=== PATIENT | female | born 1975 | race Caucasian/White ===

== ENCOUNTER 2018-10-23 16:10 | Inpatient (IN) | payer OTHER ==
--- NOTE | 2018-10-23 16:13 | PDOC ---
History of Present Illness - History of Present Illness Initial Comments: 10/23/18 17:08 The patient is a 43 year old female with past medical history of hypothyroidism who presents to the emergency department today accompanied by her , sent by Dr. Ocampo for evaluation status post spinal procedure taken place on September 27, 2018. Patient reports increasing back pain since her operation. She explains that the pain radiates to her lower extremities and notes spasms in her right leg with associated weakness. Patient notes draining from her incision which she describes as yellow in color with streaks of blood. Patient describes pimple like bumps around incision which her noticed yesterday. Patient reports intermittent episodes of chills and fever, with highest being noted to be 99.8 degrees. Patient has been using walker to ambulate. Denies chest pain, shortness of breath, headache, nausea, vomiting, and bowel/ urinary issues. Allergies: no known drug allergies. Social: tobacco use reported. No reported alcohol or drug use. Surgical history: cholecystectomy (2013), tonsillectomy (1990), (2000 , 2004) Prize Coordinator : Dr. Leonardo Ocampo ([phone]) <Mesha Muro - Last Filed: 10/23/18 17:08> - General History Source: Patient Exam Limitations: No Limitations <Jose Pitts - Last Filed: 10/23/18 18:49> - General Chief Complaint: Wound Stated Complaint: INFECTION TO INCISION SITE Time Seen by Provider: 10/23/18 16:11 Past History <Mesha Muro - Last Filed: 10/23/18 17:08> <Jose Pitts - Last Filed: 10/23/18 18:49> - Past Medical History Allergies/Adverse Reactions: Allergies Allergy/AdvReac Type Severity Reaction Status Date / Time No Known Allergies Allergy Verified 10/23/18 16:11 Home Medications: Ambulatory Orders Citalopram Hydrobromide [Citalopram HBr] 20 mg PO HS 10/23/18 Clonazepam [Klonopin] 1.5 mg PO HS 10/23/18 Cyclobenzaprine HCl [Flexeril 10 mg] 10 mg PO [facility]IR PRN 10/23/18 Gabapentin 300 mg PO BID 10/23/18 Gabapentin 600 mg PO HS 10/23/18 Levothyroxine Sodium [Synthroid] 88 mcg PO DAILY 10/23/18 Mirtazapine 45 mg PO HS 10/23/18 Oxycodone HCl/Acetaminophen [Percocet 5-325 mg Tablet] 1 - 2 tab PO Q4H PRN Review of Systems - Review of Systems Constitutional: Yes: Chills, Fever Respiratory: No: Cough, Shortness of Breath Cardiac (ROS): No: Chest Pain ABD/GI: No: Diarrhea, Vomiting : No: Incontinence Musculoskeletal: Yes: Back Pain Integumentary: Yes: See HPI All Other Systems: Reviewed and Negative <Jose Pitts - Last Filed: 10/23/18 18:49> *Physical Exam - Vital Signs Last Vital Signs Temp Pulse Resp BP Pulse Ox 98.3 F 76 18 98/59 L 100 10/23/18 16:10 10/23/18 16:10 10/23/18 16:10 10/23/18 16:10 10/23/18 16:10 - Physical Exam Comments: 10/23/18 17:01 GENERAL: The patient is awake, alert, and fully oriented, in no acute distress. HEAD:Normal with no signs of trauma. EYES: Pupils equal, round and reactive to light, extraocular movements intact, sclera anicteric, conjunctiva clear. HEART: Regular rate and rhythm, normal S1 and S2 without murmur or rub. EXTREMITIES: Normal range of motion, no edema. NEUROLOGICAL: (+)Full range of motion limited by lower back and hip discomfort. Normal speech, normal gait. PSYCH: Normal mood, normal affect. SKIN: (+)Vertical midline incision in lower back. Sutures intact. Subtle surrounding blanching erythema. (+)Purulence along incision. No tracking induration or fluctuance. (+)Slight discomfort to palpation. No crepitus or foreign body. Warm, Dry, normal turgor, no rashes or lesions noted. <Mesha Muro - Last Filed: 10/23/18 17:08> Moderate Sedation - Procedure Monitoring Vital Signs: Procedure Monitoring Vital Signs Temperature 98.3 F 10/23/18 16:10 Pulse Rate 76 10/23/18 16:10 Respiratory Rate 18 10/23/18 16:10 Blood Pressure 98/59 L 10/23/18 16:10 O2 Sat by Pulse Oximetry (%) 100 10/23/18 16:10 <Mesha Muro - Last Filed: 10/23/18 17:08> ED Treatment Course - LABORATORY CBC & Chemistry Diagram: 10/23/18 16:45 10/23/18 16:45 <Jose Pitts - Last Filed: 10/23/18 18:49> Medical Decision Making - Medical Decision Making 10/23/18 16:42 Dr. Ocampo contacted via cell and is en route to see patient. <Mesha Muro - Last Filed: 10/23/18 17:08> - Medical Decision Making 10/23/18 16:27 43-year-old female with history of hypothyroidism status post spinal fusion and scoliosis procedure with Dr. ocampo on 09/27/18 presents now for further management of surgical site/incision infection that has developed over the last 10 days to 2 weeks. Some localized discomfort with purulent drainage, low-grade fever 99. Dr. ocampo aware and referred patient for management. Afebrile here, no acute distress Vertical midline lower back incision with purulence and slight surrounding erythema, no active bleeding. Neurovascularly intact distally 43-year-old female with likely surgical site infection, refer for management. Labs including ESR and CRP as discussed with Dr. ocampo management per surgical team 10/23/18 16:57 Dr. Ocampo at bedside, accepts for admission, scheduled for OR tomorrow morning. Plan to hold abx, will obtain cultures in OR. 10/23/18 18:49 no leukocytosis, mild anemia with no prior for comparison, chem wnl. ESR markedly elevated, CRP pending. Bed ready, proceed with admission. <Jose Pitts - Last Filed: 10/23/18 18:49> *DC/Admit/Observation/Transfer - Attestations Scribe Attestion: 10/23/18 16:43 Documentation prepared by Mesha Muro, acting as medical supervisor for Jose Pitts MD. <Mesha Muro - Last Filed: 10/23/18 17:08> - Discharge Dispostion Decision to Admit order: Yes <Jose Pitts - Last Filed: 10/23/18 18:49> Diagnosis at time of Disposition: Surgical site infection - Discharge Dispostion Condition at time of disposition: Stable
--- NOTE | 2018-10-23 17:13 | HP ---
Admitting History and Physical - Admission Chief Complaint: back pain, wound drainage History of Present Illness: s/p two level lumbar fusion performed 09/28/18. Post op course complicated by draining seroma which was treated with PO Bactrim and local wound care. The wound was progressing with VNS dressing changes but last night patient developed increasing pain and purulent drainage this morning. History Source: Patient Limitations to Obtaining History: No Limitations - Past Medical History Gastrointestinal: Yes: GERD Musculoskeletal: Yes: Chronic low back pain Endocrine: Yes: Hypothyroidism - Past Surgical History Past Surgical History: Yes: Laminectomy - Smoking History Smoking history: Current every day smoker Have you smoked in the past 12 months: Yes Aproximately how many cigarettes per day: 20 - Alcohol/Substance Use Hx Alcohol Use: No (occasional) History of Substance Use: reports: None - Social History Usual Living Arrangement: Yes: With Spouse Home Medications - Allergies Allergies/Adverse Reactions: Allergies Allergy/AdvReac Type Severity Reaction Status Date / Time No Known Allergies Allergy Verified 10/23/18 16:11 - Home Medications Home Medications: Ambulatory Orders Citalopram Hydrobromide [Citalopram HBr] 20 mg PO HS 10/23/18 Clonazepam [Klonopin] 1.5 mg PO HS 10/23/18 Cyclobenzaprine HCl [Flexeril 10 mg] 10 mg PO ASDIR PRN 10/23/18 Gabapentin 300 mg PO BID 10/23/18 Gabapentin 600 mg PO HS 10/23/18 Levothyroxine Sodium [Synthroid] 88 mcg PO DAILY 10/23/18 Mirtazapine 45 mg PO HS 10/23/18 Oxycodone HCl/Acetaminophen [Percocet 5-325 mg Tablet] 1 - 2 tab PO Q4H PRN Review of Systems - Review of Systems Constitutional: reports: No Symptoms Eyes: reports: No Symptoms HENT: reports: No Symptoms Respiratory: reports: No Symptoms Gastrointestinal: reports: No Symptoms Physical Examination Vital Signs: Vital Signs Temperature 98.3 F 10/23/18 16:10 Pulse Rate 76 10/23/18 16:10 Respiratory Rate 18 10/23/18 16:10 Blood Pressure 98/59 L 10/23/18 16:10 O2 Sat by Pulse Oximetry (%) 100 10/23/18 16:10 Constitutional: Yes: Well Nourished, No Distress, Calm Eyes: Yes: WNL HENT: Yes: WNL Neck: Yes: WNL Respiratory: Yes: Regular Gastrointestinal: Yes: WNL, Soft ...Rectal Exam: Yes: Deferred Musculoskeletal: Yes: WNL Extremities: Yes: WNL ...Motor Strength: WNL, LUE, LLE, RUE, RLE (Wound: thin, cloudy drainage. suture line intact.) Assessment/Plan Lumbar Wound Infection s/p instrumented fusion 09/28/19 -NPO p midnight -I&D first thing in AM -hold antibiotics until OR cultures -discussed with patient and . Will need prolongued IV antibiotic treatment (likely 6 weeks) given presence of hardware. May need multiple I&Ds depending on clinical course. R,B,A discussed in detail. They agree with the plan.
[2018-10-23 17:36] LABS: BASO % 0.6 % (0-2.0); EOS % 3.2 % (0-4.5); HEMATOCRIT 31.5 % (32.4-45.2); HEMOGLOBIN 10.1 GM/dl (10.7-15.3); INR 1.1 (0.82-1.09); LYMPH % 31.2 % (8-40); MCH 24.8 pg (25.7-33.7); MCHC 32.1 g/dl (32.0-36.0); MEAN CELL VOLUME 77.3 fl (80-96); MEAN PLT VOLUME 7.3 fl (7.5-11.1); PLATELET COUNT 385 K/MM3 (134-434); PROTHROMBIN TIME (PATIENT) 12.3 SEC (10.2-13.0); RBC 4.07 M/mm3 (3.60-5.2); RDW 14.8 % (11.6-15.6); WHITE BLOOD COUNT 7.3 K/mm3 (4.0-10.8)
[2018-10-23 17:58] LABS: ANION GAP 11 MMOL/L (8-16); BLOOD UREA NITROGEN 11 mg/dl (7-18); CALCIUM 9.1 mg/dl (8.5-10); CHLORIDE 101 mmol/L (98-107); CO2 24 mmol/L (21-32); CREATININE 0.7 mg/dl (0.55-1.3); GLUCOSE,RANDOM 77 mg/dl (74-106); POTASSIUM 4.2 mmol/L (3.5-5.1); SODIUM 136 mmol/L (136-145)
[2018-10-23 18:20] LABS: ERYTHROCYTE SEDIMENTATION RATE 102 mm/hr (0-20)
[2018-10-23 18:41] VITALS: BMI 40.9
[2018-10-23] MEDS: oxyCODONE HCL 5 MG TABLET PO PRN ×2 (18:44→23:58)
[2018-10-23] MEDS: ACETAMINOPHEN 325 MG TABLET (FP) PO PRN (18:44)
[2018-10-23] MEDS ORDERED: MIRTAZAPINE 15 MG TABLET (FP) ONE (21:22)
[2018-10-23] MEDS: GABAPENTIN 300 MG CAPSULE (FP) PO SCH (21:30)
[2018-10-23] MEDS: clonazePAM 0.5 MG TABLET PO SCH (21:30)
[2018-10-23] MEDS: DOCUSATE SODIUM 100 MG CAPSULE (FP) PO SCH (21:30)
[2018-10-23] MEDS: CITALOPRAM HYDROBROMIDE 20 MG TABLET (FP) PO SCH (21:31)
[2018-10-23] MEDS ORDERED: MIRTAZAPINE 30 MG TABLET (FP) PO SCH (22:00)
[2018-10-23] MEDS: CYCLOBENZAPRINE HCL 10 MG TABLET (FP) PO PRN (23:58)
[2018-10-24] MEDS: LEVOTHYROXINE NA 88 MCG TABLET (FP) PO SCH (06:02)
[2018-10-24] MEDS ORDERED: ePHEDrine SULFATE 50 MG/1 ML AMPULE ONE (07:05)
[2018-10-24] MEDS ORDERED: fentaNYL CITRATE 250 MCG/5 ML VIAL ONE (07:06)
[2018-10-24] MEDS ORDERED: SUCCINYLCHOLINE CHLORIDE 200 MG/10 ML VIAL ONE (07:06)
[2018-10-24] MEDS ORDERED: MIDAZOLAM HCL 2 MG/2 ML SINGLE DOSE VIAL ONE (07:06)
[2018-10-24] MEDS ORDERED: PROPOFOL 20 ML ONE ×4 (07:06)
[2018-10-24] MEDS ORDERED: ROCURONIUM BROMIDE 50 MG/5 ML VIAL ONE ×2 (07:06→08:38)
[2018-10-24] MEDS ORDERED: VANCOMYCIN 1,000 MG VIAL (RESTRICTED TO ID ONLY) ONE (08:34)
[2018-10-24] MEDS ORDERED: ONDANSETRON 4 MG/2 ML VIAL IVPUSH PRN (09:25)
[2018-10-24] MEDS: DOCUSATE SODIUM 100 MG CAPSULE (FP) PO SCH ×2 (10:16→22:35)
[2018-10-24] MEDS ORDERED: ONDANSETRON 4 MG/2 ML VIAL ONE (10:17)
--- NOTE | 2018-10-24 10:33 | OP ---
Operative Note - Note: Operative Date: 10/24/18 Pre-Operative Diagnosis: Lumbar Wound Infection Operation: Irrigation and deridement deep lumbar wound infection Findings: Purulent collection, superficial to fascia but a small distal fascial breach noted Post-Operative Diagnosis: Same as Pre-op Surgeon: Leonardo Dominguez Anesthesia: General Specimens Removed: wound cultures Drains & Tubes with Location: Operative Report Dictated: Yes
--- NOTE | 2018-10-24 10:50 | EKG ---
Test Reason : Blood Pressure : / mmHG Vent. Rate : 065 BPM Atrial Rate : 065 BPM P-R Int : 120 ms QRS Dur : 090 ms QT Int : 420 ms P-R-T Axes : 038 001 005 degrees QTc Int : 436 ms POOR DATA QUALITY, INTERPRETATION MAY BE ADVERSELY AFFECTED NORMAL SINUS RHYTHM NORMAL ECG NO PREVIOUS ECGS AVAILABLE Confirmed by JOEL CARDENAS MD ([id number]) on 10/24/2018 10:50:06 AM Referred By: Leonardo Dominguez Confirmed By:JOEL CARDENAS MD
[2018-10-24] MEDS: LACTATED RINGERS SOLUTION 1,000 ML IV SCH (11:10)
[2018-10-24] MEDS: GABAPENTIN 300 MG CAPSULE (FP) PO SCH ×3 (11:11→22:35)
--- NOTE | 2018-10-24 11:40 | OP ---
DATE OF OPERATION: 10/24/2018 PREOPERATIVE DIAGNOSIS: Lumbar wound infection. POSTOPERATIVE DIAGNOSIS: Deep lumbar wound infection. PROCEDURE PERFORMED: Irrigation and debridement of deep lumbar wound infection. SURGEON: Leonardo Dominguez MD ANESTHESIA: General. INDICATION: Patient is a 43-year-old female who underwent a 2-level lumbar fusion with interbody cage placement. She had a stable postoperative course. It was complicated by prolonged wound drainage. Initially this was clear drainage and was managed with p.o. antibiotics and dressing changes. She continued to improve; however, 2 nights ago she started to develop significant drainage and increasing pain from her wound. The visiting nurse saw the wound yesterday and was concerned and gave me a call. I told the patient to come to the emergency room. Evaluation in the emergency room showed clear wound infection with purulent drainage. She was indicated for irrigation and debridement. Risks, benefits, and alternatives of the surgery were discussed in detail with the patient and her . They understand that this needs to be done and sometimes multiple washouts are required to get the infection under control. All questions were answered. Informed consent was obtained. DESCRIPTION: The patient was brought into the operating room by stretcher and general endotracheal anesthesia was administered by the anesthesiologist. The patient was then flipped into the prone position on to a padded Frank frame. All bony prominences were padded. The back was then prepped and draped in the usual sterile fashion. The wound was opened and a purulent collection was noted in the distal portion of the wound. Deep cultures were sent off for Gram stain and cultures. The area was then debrided with a [place] and the deep fascia was noted to be mostly intact. However, there was a small breach at the fascia distally. 3 L of pulsatile lavage irrigation was performed in the suprafascial area of the spine with excellent debridement of this area. I increased the window in the fascia to visualize area where the hardware was present. There was noted to be no gross purulence in this compartment. However, all the areas were then again pulsatile lavaged with another 3 L of saline. The fascia was then closed with a No. 1 Prolene suture. A deep drain was then placed right above the fascia. The skin was then closed with a combination of vertical mattress and simple sutures using No. 1 Prolene as well as 2-0 nylon and 3-0 nylon. The drain was then connected to suction. A sterile dressing was applied. The patient tolerated the procedure well without complications. Wilda MCNULTY/[id number] MTDD
--- NOTE | 2018-10-24 12:51 | CON.ID ---
Consult - Past Medical History Gastrointestinal: Yes: GERD Musculoskeletal: Yes: Chronic low back pain Endocrine: Yes: Hypothyroidism - Past Surgical History Past Surgical History: Yes: Laminectomy - Alcohol/Substance Use Hx Alcohol Use: No (occasional) History of Substance Use: reports: None - Smoking History Smoking history: Current every day smoker Have you smoked in the past 12 months: Yes Aproximately how many cigarettes per day: 20 Home Medications - Allergies Allergies/Adverse Reactions: Allergies Allergy/AdvReac Type Severity Reaction Status Date / Time No Known Allergies Allergy Verified 10/23/18 16:11 - Home Medications Home Medications: Ambulatory Orders Citalopram Hydrobromide [Citalopram HBr] 20 mg PO HS 10/23/18 Clonazepam [Klonopin] 1.5 mg PO HS 10/23/18 Cyclobenzaprine HCl [Flexeril 10 mg] 10 mg PO ASDIR PRN 10/23/18 Gabapentin 300 mg PO BID 10/23/18 Gabapentin 600 mg PO HS 10/23/18 Levothyroxine Sodium [Synthroid] 88 mcg PO DAILY 10/23/18 Mirtazapine 45 mg PO HS 10/23/18 Oxycodone HCl/Acetaminophen [Percocet 5-325 mg Tablet] 1 - 2 tab PO Q4H PRN Physical Exam Vital Signs: Vital Signs Temperature 98.5 F 10/24/18 10:50 Pulse Rate 67 10/24/18 10:50 Respiratory Rate 18 10/24/18 10:50 Blood Pressure 98/63 10/24/18 10:50 O2 Sat by Pulse Oximetry (%) 97 10/24/18 10:40 Labs: CBC, BMP 10/23/18 16:45 10/23/18 16:45
[2018-10-24] MEDS: CYCLOBENZAPRINE HCL 10 MG TABLET (FP) PO PRN (13:06)
[2018-10-24] MEDS: oxyCODONE HCL 5 MG TABLET PO PRN ×2 (13:06→18:40)
[2018-10-24] MEDS: PIPERACILLIN/TAZOB 3.375 GM 3.375 GM in DEXTROSE 5%-WATER - 50 ML IVPB SCH ×2 (14:00→18:43)
[2018-10-24] MEDS ORDERED: PIPERACILLIN/TAZOBACTAM 3.375 GM VIAL IVPB ONE ×3 (14:11→17:26)
[2018-10-24] MEDS ORDERED: DEXTROSE 5%-WATER - 50 ML IVPB ONE ×2 (14:11→17:25)
[2018-10-24] MEDS: morphine SULFATE 4 MG/ML VIAL IVPUSH PRN ×2 (14:42→21:00)
--- NOTE | 2018-10-24 18:49 | PN ---
Progress Note (short form) - Note Progress Note: doing better Afeb Dressing clean HV intact s/p I&D -ID consult appreciated -f/u cultures -OOB/PT
[2018-10-24] MEDS ORDERED: VANCOMYCIN 1 GRAM (PRE-DOCKED) 1,000 MG/250 ML BAG IVPB SCH (20:00)
[2018-10-24] MEDS: MIRTAZAPINE 15 MG TABLET (FP) PO SCH (22:34)
[2018-10-24] MEDS: CITALOPRAM HYDROBROMIDE 20 MG TABLET (FP) PO SCH (22:35)
[2018-10-24] MEDS: clonazePAM 0.5 MG TABLET PO SCH (22:35)
[2018-10-25] MEDS ORDERED: DEXTROSE 5%-WATER - 50 ML IVPB ONE ×3 (01:48→17:20)
[2018-10-25] MEDS ORDERED: PIPERACILLIN/TAZOBACTAM 3.375 GM VIAL IVPB ONE ×3 (01:48→17:20)
[2018-10-25] MEDS: morphine SULFATE 4 MG/ML VIAL IVPUSH PRN ×2 (01:57→10:34)
[2018-10-25] MEDS: PIPERACILLIN/TAZOB 3.375 GM 3.375 GM in DEXTROSE 5%-WATER - 50 ML IVPB SCH ×3 (02:02→17:33)
[2018-10-25] MEDS: LEVOTHYROXINE NA 88 MCG TABLET (FP) PO SCH (06:31)
[2018-10-25] MEDS: oxyCODONE HCL 5 MG TABLET PO PRN ×2 (08:03→17:29)
[2018-10-25] MEDS ORDERED: VANCOMYCIN 1,250 MG in DEXTROSE 5%-WATER - 250 ML IVPB SCH (09:00)
[2018-10-25] MEDS: DOCUSATE SODIUM 100 MG CAPSULE (FP) PO SCH ×2 (10:07→21:40)
[2018-10-25] MEDS: GABAPENTIN 300 MG CAPSULE (FP) PO SCH ×3 (10:08→21:39)
[2018-10-25] MEDS: LACTATED RINGERS SOLUTION 1,000 ML IV SCH (10:36)
--- NOTE | 2018-10-25 11:08 | PN ---
Progress Note, Physician History of Present Illness: patient stable no new issues still continues to have back pain - Current Medication List Current Medications: Active Medications Acetaminophen (Tylenol -) 325 mg PO Q4H PRN PRN Reason: PAIN LEVEL 1-5 Last Admin: 10/23/18 18:44 Dose: 325 mg Citalopram Hydrobromide (Celexa -) 20 mg PO [facility] Last Admin: 10/24/18 22:35 Dose: 20 mg Clonazepam (Klonopin -) 1.5 mg PO [facility] Last Admin: 10/24/18 22:35 Dose: 1.5 mg Cyclobenzaprine HCl (Flexeril -) 10 mg PO Q8H PRN PRN Reason: SPASMS Last Admin: 10/24/18 13:06 Dose: 10 mg Docusate Sodium (Colace -) 100 mg PO BID [facility] Last Admin: 10/25/18 10:07 Dose: 100 mg Gabapentin (Neurontin -) 300 mg PO BID@1000,1300 [facility] Last Admin: 10/25/18 10:08 Dose: 300 mg Gabapentin (Neurontin -) 600 mg PO [facility] Last Admin: 10/24/18 22:35 Dose: 600 mg Lactated Ringer's (Lactated Ringers Solution) 1,000 mls @ 125 mls/hr IV ASDIR [facility] Last Admin: 10/25/18 10:36 Dose: Not Given Vancomycin HCl 1,250 mg/ (Dextrose) 250 mls @ 250 mls/2 hr IVPB Q24H [facility]; Protocol Last Admin: 10/25/18 10:08 Dose: 250 mls/2 hr Piperacillin Sod/Tazobactam (Sod 3.375 gm/ Dextrose) 50 mls @ 100 mls/hr IVPB Q8H-IV [facility]; Protocol Last Admin: 10/25/18 10:08 Dose: 100 mls/hr Levothyroxine Sodium (Synthroid -) 88 mcg PO DAILY@0700 [facility] Last Admin: 10/25/18 06:31 Dose: 88 mcg Mirtazapine (Remeron -) 45 mg PO [facility] Last Admin: 10/24/18 22:34 Dose: 45 mg Morphine Sulfate (Morphine Sulfate) 4 mg IVPUSH Q4H PRN PRN Reason: PAIN LEVEL 6-10 Last Admin: 10/25/18 10:34 Dose: 4 mg Ondansetron HCl (Zofran Injection) 4 mg IVPUSH Q6H PRN PRN Reason: NAUSEA AND/OR VOMITING Oxycodone HCl (Roxicodone -) 5 mg PO Q4H PRN PRN Reason: PAIN LEVEL 1-5 Last Admin: 10/25/18 08:03 Dose: 5 mg - Objective Vital Signs: Vital Signs Temperature 98.6 F 10/25/18 10:00 Pulse Rate 72 10/25/18 10:00 Respiratory Rate 10/25/18 10:00 Blood Pressure 109/57 L 10/25/18 10:00 O2 Sat by Pulse Oximetry (%) 96 10/25/18 10:00 Constitutional: Yes: No Distress, Calm, Obese HENT: Yes: Atraumatic Cardiovascular: Yes: Regular Rate and Rhythm Respiratory: Yes: Regular, CTA Bilaterally Gastrointestinal: Yes: Normal Bowel Sounds, Soft Musculoskeletal: Yes: WNL Extremities: Yes: WNL Neurological: Yes: Alert, Oriented Psychiatric: Yes: Alert, Oriented Labs: CBC, BMP 10/23/18 16:45 10/23/18 16:45 INR, PTT INR 1.10 (0.82-1.09) 10/23/18 16:45 Assessment/Plan hypothyroidism back pain wound infection pain post op plan organism noted will continue zosyn will stop vanco rest continue current mgmt wound care
--- NOTE | 2018-10-25 11:55 | PN ---
Progress Note, Physician Chief Complaint: s/p I&D back under general anesthesia History of Present Illness: post op day one - Current Medication List Current Medications: Active Medications Acetaminophen (Tylenol -) 325 mg PO Q4H PRN PRN Reason: PAIN LEVEL 1-5 Last Admin: 10/23/18 18:44 Dose: 325 mg Citalopram Hydrobromide (Celexa -) 20 mg PO [facility] Last Admin: 10/24/18 22:35 Dose: 20 mg Clonazepam (Klonopin -) 1.5 mg PO [facility] Last Admin: 10/24/18 22:35 Dose: 1.5 mg Cyclobenzaprine HCl (Flexeril -) 10 mg PO Q8H PRN PRN Reason: SPASMS Last Admin: 10/24/18 13:06 Dose: 10 mg Docusate Sodium (Colace -) 100 mg PO BID [facility] Last Admin: 10/25/18 10:07 Dose: 100 mg Gabapentin (Neurontin -) 300 mg PO BID@1000,1300 [facility] Last Admin: 10/25/18 10:08 Dose: 300 mg Gabapentin (Neurontin -) 600 mg PO [facility] Last Admin: 10/24/18 22:35 Dose: 600 mg Lactated Ringer's (Lactated Ringers Solution) 1,000 mls @ 125 mls/hr IV ASDIR [facility] Last Admin: 10/25/18 10:36 Dose: Not Given Piperacillin Sod/Tazobactam (Sod 3.375 gm/ Dextrose) 50 mls @ 100 mls/hr IVPB Q8H-IV [facility]; Protocol Last Admin: 10/25/18 10:08 Dose: 100 mls/hr Levothyroxine Sodium (Synthroid -) 88 mcg PO DAILY@0700 [facility] Last Admin: 10/25/18 06:31 Dose: 88 mcg Mirtazapine (Remeron -) 45 mg PO [facility] Last Admin: 10/24/18 22:34 Dose: 45 mg Morphine Sulfate (Morphine Sulfate) 4 mg IVPUSH Q4H PRN PRN Reason: PAIN LEVEL 6-10 Last Admin: 10/25/18 10:34 Dose: 4 mg Ondansetron HCl (Zofran Injection) 4 mg IVPUSH Q6H PRN PRN Reason: NAUSEA AND/OR VOMITING Oxycodone HCl (Roxicodone -) 5 mg PO Q4H PRN PRN Reason: PAIN LEVEL 1-5 Last Admin: 10/25/18 08:03 Dose: 5 mg - Objective Vital Signs: Vital Signs Temperature 98.6 F 10/25/18 10:00 Pulse Rate 72 10/25/18 10:00 Respiratory Rate 19 10/25/18 10:00 Blood Pressure 109/57 L 10/25/18 10:00 O2 Sat by Pulse Oximetry (%) 96 10/25/18 10:00 Constitutional: Yes: Well Nourished Cardiovascular: Yes: WNL Respiratory: Yes: WNL Gastrointestinal: Yes: WNL Labs: CBC, BMP 10/23/18 16:45 10/23/18 16:45 INR, PTT INR 1.10 (0.82-1.09) 10/23/18 16:45 Assessment/Plan Pain controlled by opioids, no complications of anesthesia. Dept of anesthesia will sign off care at this time
--- NOTE | 2018-10-25 15:37 | PN ---
Progress Note, Physician History of Present Illness: she feels well. she has some pain at the incision site but this is tolerable. - Current Medication List Current Medications: Active Medications Acetaminophen (Tylenol -) 325 mg PO Q4H PRN PRN Reason: PAIN LEVEL 1-5 Last Admin: 10/23/18 18:44 Dose: 325 mg Citalopram Hydrobromide (Celexa -) 20 mg PO [facility] Last Admin: 10/24/18 22:35 Dose: 20 mg Clonazepam (Klonopin -) 1.5 mg PO [facility] Last Admin: 10/24/18 22:35 Dose: 1.5 mg Cyclobenzaprine HCl (Flexeril -) 10 mg PO Q8H PRN PRN Reason: SPASMS Last Admin: 10/24/18 13:06 Dose: 10 mg Docusate Sodium (Colace -) 100 mg PO BID [facility] Last Admin: 10/25/18 10:07 Dose: 100 mg Gabapentin (Neurontin -) 300 mg PO BID@1000,1300 [facility] Last Admin: 10/25/18 13:04 Dose: 300 mg Gabapentin (Neurontin -) 600 mg PO [facility] Last Admin: 10/24/18 22:35 Dose: 600 mg Lactated Ringer's (Lactated Ringers Solution) 1,000 mls @ 125 mls/hr IV ASDIR [facility] Last Admin: 10/25/18 10:36 Dose: Not Given Piperacillin Sod/Tazobactam (Sod 3.375 gm/ Dextrose) 50 mls @ 100 mls/hr IVPB Q8H-IV [facility]; Protocol Last Admin: 10/25/18 10:08 Dose: 100 mls/hr Levothyroxine Sodium (Synthroid -) 88 mcg PO DAILY@0700 [facility] Last Admin: 10/25/18 06:31 Dose: 88 mcg Mirtazapine (Remeron -) 45 mg PO [facility] Last Admin: 10/24/18 22:34 Dose: 45 mg Morphine Sulfate (Morphine Sulfate) 4 mg IVPUSH Q4H PRN PRN Reason: PAIN LEVEL 6-10 Last Admin: 10/25/18 10:34 Dose: 4 mg Ondansetron HCl (Zofran Injection) 4 mg IVPUSH Q6H PRN PRN Reason: NAUSEA AND/OR VOMITING Oxycodone HCl (Roxicodone -) 5 mg PO Q4H PRN PRN Reason: PAIN LEVEL 1-5 Last Admin: 10/25/18 08:03 Dose: 5 mg - Objective Vital Signs: Vital Signs Temperature 98.6 F 10/25/18 10:00 Pulse Rate 72 10/25/18 10:00 Respiratory Rate 19 10/25/18 10:00 Blood Pressure 109/57 L 10/25/18 10:00 O2 Sat by Pulse Oximetry (%) 96 10/25/18 10:00 Constitutional: Yes: Well Nourished, No Distress, Calm Musculoskeletal: Yes: Other (Dressing CDI, drain near empty but pt states it was drained earlier today. No erythema. NVID) Labs: CBC, BMP 10/23/18 16:45 10/23/18 16:45 INR, PTT INR 1.10 (0.82-1.09) 10/23/18 16:45 Assessment/Plan POD #1 s/p I&D lumbar -Pain control -Continue drain for now -Protonix ordered for her -Awaiting culture final results
[2018-10-25] MEDS: PANTOPRAZOLE 40 MG TABLET (FP) PO SCH (17:29)
[2018-10-25] MEDS: CITALOPRAM HYDROBROMIDE 20 MG TABLET (FP) PO SCH (21:39)
[2018-10-25] MEDS: MIRTAZAPINE 15 MG TABLET (FP) PO SCH (21:40)
[2018-10-25] MEDS: clonazePAM 0.5 MG TABLET PO SCH (21:40)
[2018-10-26] MEDS ORDERED: DEXTROSE 5%-WATER - 50 ML IVPB ONE ×3 (01:47→17:18)
[2018-10-26] MEDS ORDERED: PIPERACILLIN/TAZOBACTAM 3.375 GM VIAL IVPB ONE ×4 (01:47→18:20)
[2018-10-26] MEDS: PIPERACILLIN/TAZOB 3.375 GM 3.375 GM in DEXTROSE 5%-WATER - 50 ML IVPB SCH ×3 (02:07→18:00)
[2018-10-26] MEDS: LEVOTHYROXINE NA 88 MCG TABLET (FP) PO SCH (06:26)
[2018-10-26] MEDS: PANTOPRAZOLE 40 MG TABLET (FP) PO SCH (09:07)
[2018-10-26] MEDS: GABAPENTIN 300 MG CAPSULE (FP) PO SCH ×3 (09:07→21:17)
[2018-10-26] MEDS: oxyCODONE HCL 5 MG TABLET PO PRN ×3 (09:07→20:04)
[2018-10-26] MEDS: ACETAMINOPHEN 325 MG TABLET (FP) PO PRN ×2 (09:07→20:04)
[2018-10-26] MEDS: DOCUSATE SODIUM 100 MG CAPSULE (FP) PO SCH ×2 (09:07→21:18)
[2018-10-26] MEDS: CYCLOBENZAPRINE HCL 10 MG TABLET (FP) PO PRN ×2 (13:31→20:03)
--- NOTE | 2018-10-26 14:14 | PN ---
Progress Note, Physician History of Present Illness: patient stable doing well no new issues awaitng for sensitivities of the cx - Current Medication List Current Medications: Active Medications Acetaminophen (Tylenol -) 325 mg PO Q4H PRN PRN Reason: PAIN LEVEL 1-5 Last Admin: 10/26/18 09:07 Dose: 325 mg Citalopram Hydrobromide (Celexa -) 20 mg PO [facility] Last Admin: 10/25/18 21:39 Dose: 20 mg Clonazepam (Klonopin -) 1.5 mg PO [facility] Last Admin: 10/25/18 21:40 Dose: 1.5 mg Cyclobenzaprine HCl (Flexeril -) 10 mg PO Q8H PRN PRN Reason: SPASMS Last Admin: 10/26/18 13:31 Dose: 10 mg Docusate Sodium (Colace -) 100 mg PO BID [facility] Last Admin: 10/26/18 09:07 Dose: 100 mg Gabapentin (Neurontin -) 300 mg PO BID@1000,1300 [facility] Last Admin: 10/26/18 13:30 Dose: 300 mg Gabapentin (Neurontin -) 600 mg PO [facility] Last Admin: 10/25/18 21:39 Dose: 600 mg Lactated Ringer's (Lactated Ringers Solution) 1,000 mls @ 125 mls/hr IV ASDIR [facility] Last Admin: 10/25/18 10:36 Dose: Not Given Piperacillin Sod/Tazobactam (Sod 3.375 gm/ Dextrose) 50 mls @ 100 mls/hr IVPB Q8H-IV [facility]; Protocol Last Admin: 10/26/18 09:08 Dose: 100 mls/hr Levothyroxine Sodium (Synthroid -) 88 mcg PO DAILY@0700 [facility] Last Admin: 10/26/18 06:26 Dose: 88 mcg Mirtazapine (Remeron -) 45 mg PO [facility] Last Admin: 10/25/18 21:40 Dose: 45 mg Morphine Sulfate (Morphine Sulfate) 4 mg IVPUSH Q4H PRN PRN Reason: PAIN LEVEL 6-10 Last Admin: 10/25/18 10:34 Dose: 4 mg Ondansetron HCl (Zofran Injection) 4 mg IVPUSH Q6H PRN PRN Reason: NAUSEA AND/OR VOMITING Oxycodone HCl (Roxicodone -) 5 mg PO Q4H PRN PRN Reason: PAIN LEVEL 1-5 Last Admin: 10/26/18 13:30 Dose: 5 mg Pantoprazole Sodium (Protonix -) 40 mg PO DAILY [facility] Last Admin: 10/26/18 09:07 Dose: 40 mg - Objective Vital Signs: Vital Signs Temperature 98.7 F 10/26/18 05:04 Pulse Rate 71 10/26/18 05:04 Respiratory Rate 19 10/26/18 08:14 Blood Pressure 109/43 L 10/26/18 05:04 O2 Sat by Pulse Oximetry (%) 100 10/26/18 08:14 Constitutional: Yes: No Distress, Calm Cardiovascular: Yes: Regular Rate and Rhythm Respiratory: Yes: Regular, CTA Bilaterally Gastrointestinal: Yes: Normal Bowel Sounds, Soft Musculoskeletal: Yes: WNL Extremities: Yes: WNL Neurological: Yes: Alert, Oriented Psychiatric: Yes: Alert, Oriented Labs: CBC, BMP 10/23/18 16:45 10/23/18 16:45 INR, PTT INR 1.10 (0.82-1.09) 10/23/18 16:45 Assessment/Plan hypothyroidism back pain wound infection pain post op plan organism noted await for sensitivities rest as per the team wound care
--- NOTE | 2018-10-26 16:05 | PN ---
Progress Note (short form) - Note Progress Note: Patient feeling well. Pic line inserted today. Drain output of under 5 this morning. Last Vital Signs Temp Pulse Resp BP Pulse Ox 98.1 F 71 18 119/59 L 98 10/26/18 14:14 10/26/18 14:14 10/26/18 14:14 10/26/18 14:14 10/26/18 14:14 Back wounds clear dry and intact. Sutures and xeroform in place. Calves soft nontender. Neurovascularly intact. A: s/p I&D P: Took out drain and replaced with new dressing.
[2018-10-26] MEDS: MIRTAZAPINE 15 MG TABLET (FP) PO SCH (21:20)
[2018-10-26] MEDS: clonazePAM 0.5 MG TABLET PO SCH (21:21)
[2018-10-26] MEDS: CITALOPRAM HYDROBROMIDE 20 MG TABLET (FP) PO SCH (21:21)
[2018-10-27] MEDS ORDERED: PIPERACILLIN/TAZOBACTAM 3.375 GM VIAL IVPB ONE ×2 (00:51→08:00)
[2018-10-27] MEDS ORDERED: DEXTROSE 5%-WATER - 50 ML IVPB ONE ×2 (00:52→08:01)
[2018-10-27] MEDS: PIPERACILLIN/TAZOB 3.375 GM 3.375 GM in DEXTROSE 5%-WATER - 50 ML IVPB SCH ×2 (02:17→09:10)
[2018-10-27] MEDS: LEVOTHYROXINE NA 88 MCG TABLET (FP) PO SCH (06:31)
[2018-10-27 06:37] VITALS: TEMP 97.9
[2018-10-27] MEDS: ACETAMINOPHEN 325 MG TABLET (FP) PO PRN (08:10)
[2018-10-27] MEDS: oxyCODONE HCL 5 MG TABLET PO PRN (08:10)
[2018-10-27] MEDS: GABAPENTIN 300 MG CAPSULE (FP) PO SCH (09:07)
[2018-10-27] MEDS: PANTOPRAZOLE 40 MG TABLET (FP) PO SCH (09:07)
--- NOTE | 2018-10-27 10:59 | PN ---
Progress Note, Physician History of Present Illness: stable no new issues - Current Medication List Current Medications: Active Medications Acetaminophen (Tylenol -) 325 mg PO Q4H PRN PRN Reason: PAIN LEVEL 1-5 Last Admin: 10/27/18 08:10 Dose: 325 mg Citalopram Hydrobromide (Celexa -) 20 mg PO [facility] Last Admin: 10/26/18 21:21 Dose: 20 mg Clonazepam (Klonopin -) 1.5 mg PO [facility] Last Admin: 10/26/18 21:21 Dose: 1.5 mg Cyclobenzaprine HCl (Flexeril -) 10 mg PO Q8H PRN PRN Reason: SPASMS Last Admin: 10/26/18 20:03 Dose: 10 mg Docusate Sodium (Colace -) 100 mg PO BID [facility] Last Admin: 10/26/18 21:18 Dose: 100 mg Gabapentin (Neurontin -) 300 mg PO BID@1000,1300 [facility] Last Admin: 10/27/18 09:07 Dose: 300 mg Gabapentin (Neurontin -) 600 mg PO [facility] Last Admin: 10/26/18 21:17 Dose: 600 mg Cefazolin Sodium 1 gm/ (Dextrose) 50 mls @ 100 mls/hr IVPB Q8H-IV [facility] Levothyroxine Sodium (Synthroid -) 88 mcg PO DAILY@0700 [facility] Last Admin: 10/27/18 06:31 Dose: 88 mcg Mirtazapine (Remeron -) 45 mg PO [facility] Last Admin: 10/26/18 21:20 Dose: 45 mg Morphine Sulfate (Morphine Sulfate) 4 mg IVPUSH Q4H PRN PRN Reason: PAIN LEVEL 6-10 Last Admin: 10/25/18 10:34 Dose: 4 mg Ondansetron HCl (Zofran Injection) 4 mg IVPUSH Q6H PRN PRN Reason: NAUSEA AND/OR VOMITING Oxycodone HCl (Roxicodone -) 5 mg PO Q4H PRN PRN Reason: PAIN LEVEL 1-5 Last Admin: 10/27/18 08:10 Dose: 5 mg Pantoprazole Sodium (Protonix -) 40 mg PO DAILY [facility] Last Admin: 10/27/18 09:07 Dose: 40 mg Rifampin (Rifadin -) 600 mg PO DAILY [facility] - Objective Vital Signs: Vital Signs Temperature 97.9 F 10/27/18 06:36 Pulse Rate 71 10/27/18 06:36 Respiratory Rate 18 10/27/18 08:14 Blood Pressure 101/57 L 10/27/18 06:36 O2 Sat by Pulse Oximetry (%) 96 10/27/18 08:14 Constitutional: Yes: No Distress, Calm, Obese Cardiovascular: Yes: Regular Rate and Rhythm Respiratory: Yes: Regular, CTA Bilaterally Gastrointestinal: Yes: Normal Bowel Sounds, Soft Musculoskeletal: Yes: WNL Extremities: Yes: WNL Wound/Incision: Yes: Dressing Dry and Intact Neurological: Yes: Alert, Oriented Psychiatric: Yes: Alert, Oriented Labs: CBC, BMP 10/23/18 16:45 10/23/18 16:45 INR, PTT INR 1.10 (0.82-1.09) 10/23/18 16:45 Assessment/Plan hypothyroidism back pain wound infection pain post op plan sensitivities noted will change abx to cefazolin 1gm qd rifampin 600 mg daily patient will need it for 6 weeks rest as per the team
[2018-10-27] MEDS ORDERED: RIFAMPIN 300 MG CAPSULE PO SCH (11:00)
[2018-10-27] MEDS ORDERED: CEFAZOLIN 1 GM in DEXTROSE 5%-WATER - 50 ML IVPB SCH (11:00)
[2018-10-27 14:14] VITALS: BP 99/66; PULSE 69
== END 2018-10-27 16:30 | disposition home or self-care (01) | DRG 721 ==
LOC: FER 16:10 → FM/S 17:03
PROVIDERS: ADMIT Orthopaedic Surgery Orthopaedic Surgery of the Spine; ATTEND Orthopaedic Surgery Orthopaedic Surgery of the Spine
PROC: 0JB70ZX Excision of Back Subcutaneous Tissue and Fascia, Open Approach, Diagnostic (ICD-10-PCS; principal; 2018-10-24 08:00)
PROC: 02HV33Z Insertion of Infusion Device into Superior Vena Cava, Percutaneous Approach (ICD-10-PCS; 2018-10-26)
PROC: B518ZZA Fluoroscopy of Superior Vena Cava, Guidance (ICD-10-PCS; 2018-10-26)
DX: T81.49XA Infection following a procedure, other surgical site, initial encounter (principal); K21.9 Gastro-esophageal reflux disease without esophagitis; E03.9 Hypothyroidism, unspecified; E66.9 Obesity, unspecified; Z68.41 Body mass index [BMI] 40.0-44.9, adult; Y83.9 Surgical procedure, unspecified as the cause of abnormal reaction of the patient, or of later complication, without mention of misadventure at the time of the procedure; F17.210 Nicotine dependence, cigarettes, uncomplicated
CPT/HCPCS: 36415; 36569; 77001-TC-FY; 80048; 84703; 85025; 85610; 85651; 86140; 86850; 86900; 86901; 87070; 87186; 87205; 93005; 94760; 97116-GP; 97162-GP; 99284-25; C1751